=== PATIENT | male | born 1960 | race Caucasian/White ===

== ENCOUNTER 2023-06-21 17:32 | Observation (INO) | payer OTHER ==
--- NOTE | 2023-06-21 17:52 | ERPHSYRPT ---
- History of Present Illness Time Seen by Provider: 06/21/23 17:51 Source: patient, family Exam Limitations: clinical condition Patient Subjective Stated Complaint: vision loss, previous stroke Triage Nursing Assessment: patient's states that he had a stroke 1 month ago which left him paralyzed on the right side and unable to speak. he now is having loss of vision in the left eye Physician History: This is a 62-year-old white male patient who suffered a stroke 1 month ago while he was in [place]. Eventually he was transferred to [place] then to [place] and then [facility] for rehabilitation. Patient is aphasic and cannot move his right side. Patient was a chronic smoker of cigarettes. Carmella ent has a history of hypertension, prostate issues and hyperlipidemia. Approximately 30 minutes prior to arrival, the patient suddenly lost vision in his left eye. This is based on his spouse asking him if he is having any eye problems. He nods his head yes. He localizes his loss of vision in the left eye. It is persistent. He has no headache pain. Patient is taking atorvastatin, Plavix and aspirin. He also has antihypertensive medication that he is taking. Timing/Duration: today Severity: moderate Character of Deficits: vision problems (After [place] of vision) Deficits: cannot stand (Chronic), cannot walk (Chronic), off balance (Chronic) Baseline/Normal Cognition: alert oriented x 3 (But cannot speak) Current Cognition: alert oriented x 3 (But cannot speak) Associated Symptoms: vision changes (Loss of vision in left eye), No confusion, No loss of consciousness, No headache Allergies/Adverse Reactions: No Known Drug Allergies Allergy (Unverified 06/21/23 18:14) Home Medications: Amlodipine Besylate 10 mg PO QHS 06/21/23 [History] Aspirin 81 gm Chew [Baby Aspirin 81 mg Chew] 81 mg PO DAILY 06/21/23 [History] Atorvastatin Calcium 40 mg PO QHS 06/21/23 [History] Clopidogrel Bisulfate [Clopidogrel] 75 mg PO DAILY 06/21/23 [History] Losartan Potassium 50 mg [Cozaar 50 MG] 50 mg PO DAILY 06/21/23 [History] Sertraline HCl 50 mg [Zoloft 50 mg Tablet] 50 mg PO DAILY 06/21/23 [History] Tamsulosin HCl 0.4 mg [Flomax 0.4 MG] 0.4 mg PO DAILY 06/21/23 [History] Hx Tetanus, Diphtheria Vaccination/Date Given: No Hx Influenza Vaccination/Date Given: No Immunizations Up to Date: Yes Travel Risk - International Travel Have you traveled outside of the country in past 3 weeks: No - Emerging Infectious Disease Are you exhibiting symptoms associated with any current EIDs: No - Review of Systems Constitutional: No Symptoms Eyes: Vision Changes (Also vision left eye) Ears, Nose, & Throat: No Symptoms Respiratory: No Symptoms Cardiac: No Symptoms Abdominal/Gastrointestinal: No Symptoms Genitourinary Symptoms: No Symptoms Musculoskeletal: No Symptoms Skin: No Symptoms Neurological: Other (Loss of vision left eye) Endocrine: No Symptoms Hematologic/Lymphatic: No Symptoms Immunological/Allergic: No Symptoms All Other Systems: Reviewed and Negative - Past Medical History Pertinent Past Medical History: Yes Neurological History: Stroke - Past Surgical History Musculoskeletal: Orthopedic Surgery Other Surgical History: back surgery - Social History Smoking Status: Former smoker Drug Use: none - Nursing Vital Signs Nursing Vital Signs: Initial Vital Signs Temperature 97 F 06/21/23 17:38 Pulse Rate 80 06/21/23 17:38 Respiratory Rate 16 06/21/23 17:38 Blood Pressure 138/74 06/21/23 17:38 O2 Sat by Pulse Oximetry 94 L 06/21/23 17:38 Pain Scale Pain Intensity 0 - [place] Coma Scale Best Eye Response (Elverta): (4) open spontaneously Best Verbal Response (Annie): (5) oriented Best Motor Response ([place]ver[place]): (6) obeys commands [place] Total: 15 - Physical Exam General Appearance: no apparent distress, alert, anxiety Eye Exam: bilateral eye: normal inspection Ears, Nose, Throat Exam: normal ENT inspection, moist mucous membranes Neck Exam: normal inspection, non-tender, supple, full range of motion Respiratory: normal breath sounds, lungs clear, airway intact, No chest tenderness, No respiratory distress Cardiovascular: regular rate/rhythm, normal heart sounds, normal peripheral pulses Gastrointestinal: soft, normal bowel sounds, No tenderness Rectal Exam: not done Back Exam: normal inspection, No CVA tenderness, No vertebral tenderness Extremity Exam: paralysis (Patient cannot move his right sidechronic since his stroke 1 month ago) training administrator Exam: normal hearing Motor/Sensory: weak motor strength RUE (Cannot move right upper extremity), weak motor strength RLE (Cannot move right lower extremity) Skin Exam: normal color, warm, dry SpO2 Interpretation: borderline oxygenation SpO2: 94 O2 Delivery: Room Air - Course Nursing assessment & vital signs reviewed: Yes EKG Interpreted by Me: RATE (76), Sinus Rhythm, NORMAL AXIS, NORMAL INTERVALS, NORMAL QRS, NORMAL ST-T, Other (No acute ischemic changes on today's twelve-lead EKG.) Ordered Tests: Active Orders 24 hr Category Date Time Status Rubber Splicer STAT Care 06/21/23 17:52 Active IV Insertion STAT Care 06/21/23 17:52 Active IV Insertion-2nd Peripheral STAT Care 06/21/23 17:52 Active NPO (ED) STAT Care 06/21/23 17:52 Active Pulse Oximetry (ED) STAT Care 06/21/23 17:[address] ANGIOGRAPHY NECK [CT] Stat Exams 06/21/23 17:54 Completed CTA HEAD W AND/OR WO CONTRAST [CT] Stat Exams 06/21/23 17:53 Completed HEAD WITHOUT CONTRAST [CT] Stat Exams 06/21/23 18:00 Completed CBC W DIFF Stat Lab 06/21/23 18:00 Completed CMP Stat Lab 06/21/23 18:00 Completed CULTURE,URINE Stat Lab 06/21/23 21:15 Received PROTIME WITH INR Stat Lab 06/21/23 18:00 Completed UA W/RFX UR CULTURE Stat Lab 06/21/23 21:15 Completed Lab/Rad Data: Laboratory Result Diagrams 06/21/23 18:00 06/21/23 18:00 Laboratory Results 06/21/23 06/21/23 06/21/23 Range/Units 21:15 18:00 18:00 WBC (4.0-10.5) x10^3/uL RBC (4.1-5.6) x10^6/uL Hgb (12.5-18.0) g/dL Hct (42-50) % MCV (78-100) fL MCH (26-32) pg MCHC (32-36) g/dL RDW (11.5-14.0) % Plt Count (150-450) x10^3/uL MPV (7.5-11.0) fL Gran % (36.0-66.0) % Immature Gran % (Auto) (0.00-0.4) % Nucleat RBC Rel Count (0.00-0.1) % Eos # (Auto) (0-0.5) x10^3/uL Immature Gran # (Auto) (0.00-0.03) x10^3u/L Absolute Lymphs (auto) (1.0-4.6) x10^3/uL Absolute Monos (auto) (0.0-1.3) x10^3/uL Absolute Nucleated RBC (0.00-0.01) x10^3u/L Lymphocytes % (24.0-44.0) % Monocytes % (0.0-12.0) % Eosinophils % (0.00-5.0) % Basophils % (0.0-0.4) % Absolute Granulocytes (1.4-6.9) x10^3/uL Basophils # (0-0.4) x10^3/uL PT 9.9 (9.4-12.5) SECONDS INR 0.90 (0.8-3.0) Sodium 136 (135-145) mmol/L Potassium 3.9 (3.5-5.1) mmol/L Chloride 101 (98-107) mmol/L Carbon Dioxide 30 (22-30) mmol/L Anion Gap 9.0 (5-15) MEQ/L BUN 26 H (9-20) mg/dL Creatinine 0.89 (0.66-1.25) mg/dL Estimated GFR 98.1 ML/MIN Glucose 106 (74-106) mg/dL Calcium 9.3 (8.4-10.2) mg/dL Total Bilirubin 0.30 (0.2-1.3) mg/dL AST 33 (17-59) U/L ALT 38 (0-50) U/L Alkaline Phosphatase 93 (38-126) U/L Serum Total Protein 6.7 (6.3-8.2) g/dL Albumin 4.0 (3.5-5.0) g/dL Urine Color Yellow (Yellow) Urine Appearance Clear (Clear) Urine pH 6.5 (4.6-8.0) Ur Specific [place] >=1.030 A (1.005-1.030) Urine Protein Negative (Negative) Urine Glucose (UA) Negative (Negative) mg/dL Urine Ketones Negative (Negative) Urine Blood Negative (Negative) Urine Nitrite Negative (Negative) Urine Bilirubin Negative (Negative) Urine Urobilinogen 1.0 A (0.2) mg/dL Ur Leukocyte Esterase Small A (Negative) U Hyaline Cast (Auto) NONE SEEN (0-2) /LPF Urine Microscopic RBC 0-2 (0-5) /HPF Urine Microscopic WBC 21-50 A (0-5) /HPF Ur Epithelial Cells None Seen (None Seen) /HPF Urine Bacteria None Seen (None Seen) /HPF Urine Culture Reflexed YES (NO) 06/21/23 Range/Units 18:00 WBC 8.2 (4.0-10.5) x10^3/uL RBC 4.11 (4.1-5.6) x10^6/uL Hgb 13.3 (12.5-18.0) g/dL Hct 39.4 L (42-50) % MCV 95.9 (78-100) fL MCH 32.4 H (26-32) pg MCHC 33.8 (32-36) g/dL RDW 12.4 (11.5-14.0) % Plt Count 272 (150-450) x10^3/uL MPV 8.6 (7.5-11.0) fL Gran % 59.3 (36.0-66.0) % Immature Gran % (Auto) 0.1 (0.00-0.4) % Nucleat RBC Rel Count 0.0 (0.00-0.1) % Eos # (Auto) 0.69 H (0-0.5) x10^3/uL Immature Gran # (Auto) 0.01 (0.00-0.03) x10^3u/L Absolute Lymphs (auto) 1.90 (1.0-4.6) x10^3/uL Absolute Monos (auto) 0.71 (0.0-1.3) x10^3/uL Absolute Nucleated RBC 0.00 (0.00-0.01) x10^3u/L Lymphocytes % 23.1 L (24.0-44.0) % Monocytes % 8.6 (0.0-12.0) % Eosinophils % 8.4 H (0.00-5.0) % Basophils % 0.5 (0.0-0.4) % Absolute Granulocytes 4.87 (1.4-6.9) x10^3/uL Basophils # 0.04 (0-0.4) x10^3/uL PT (9.4-12.5) SECONDS INR (0.8-3.0) Sodium (135-145) mmol/L Potassium (3.5-5.1) mmol/L Chloride (98-107) mmol/L Carbon Dioxide (22-30) mmol/L Anion Gap (5-15) MEQ/L BUN (9-20) mg/dL Creatinine (0.66-1.25) mg/dL Estimated GFR ML/MIN Glucose (74-106) mg/dL Calcium (8.4-10.2) mg/dL Total Bilirubin (0.2-1.3) mg/dL AST (17-59) U/L ALT (0-50) U/L Alkaline Phosphatase (38-126) U/L Serum Total Protein (6.3-8.2) g/dL Albumin (3.5-5.0) g/dL Urine Color (Yellow) Urine Appearance (Clear) Urine pH (4.6-8.0) Ur Specific [place] (1.005-1.030) Urine Protein (Negative) Urine Glucose (UA) (Negative) mg/dL Urine Ketones (Negative) Urine Blood (Negative) Urine Nitrite (Negative) Urine Bilirubin (Negative) Urine Urobilinogen (0.2) mg/dL Ur Leukocyte Esterase (Negative) U Hyaline Cast (Auto) (0-2) /LPF Urine Microscopic RBC (0-5) /HPF Urine Microscopic WBC (0-5) /HPF Ur Epithelial Cells (None Seen) /HPF Urine Bacteria (None Seen) /HPF Urine Culture Reflexed (NO) - Progress Progress: unchanged Progress Note: 06/21/23 19:06 My medical decision making and the assignment of high complexity of this patient's medical issue today is based on review of the patient's past medical history, review of the patient's medication list, review the patient drug allergy list, history of present illness and physical findings on examination. The workup in this patient includes placement of an intravenous line, CT of the head without contrast, CTA of the head with contrast, CT angiography of the neck. Will also do a twelve-lead EKG, urinalysis, CBC, CMP, PT/INR. Differential diagnosis includes worsening CVA, new CVA, carotid artery disease, arrhythmia 06/21/23 20:12 I interpreted the laboratory data results. The laboratory data results thus far do not show an acute or emergent medical issue. The urinalysis is pending. CT of the head without contrast was interpreted by the radiologist and shows a left parietal hypodense area seen in the cortical and subcortical region and left middle cerebral artery territory. Likely acute infarct. There is a well- defined dense lesion seen at the right carotid cistern showing enhancement on arterial phase study. Highly suggestive for a large MCA aneurysm measuring 14 mm x 12 mm. There are microvascular ischemic and senile changes. CTA of the head was interpreted by the radiologist and I reviewed the impression. The the study shows the left common carotid, ICA and visualized extracranial segments seen occluded with filling defect within signifying thrombus. 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 The remainder of the study is normal. There is a normal [place] 06/21/23 20:23 CT angiography of the neck was interpreted by the radiologist. The impression states there is left common carotid and internal carotid artery that are seen that are occluded with an isodense thrombus along their course. The right carotid artery has a hemodynamic insignificant atheromatous plaque and calcifications. The proximal right MCA highly concerning for aneurysm 06/21/23 21:[address] Lau, the [facility] neurologist on-call. He reviewed the actual films as I was reading the reports of the radiologist finding of all the studies that were clouded regarding this patient. He states that he feels that these areas of abnormalities appear chronic. He does not feel the patient requires thrombectomy. He stated that the only patients that they are taking at this time are level 1 stroke and trauma patients. He does not believe this is an acute stroke. We will contact [facility] [place] and have them evaluate these studies for possible transfer to their facility. 06/21/23 21:30 We contacted [facility] and I spoke with the nurse practitioner Jaquelin. It sounded as if she was in neurology and I had already spoken with the neurologist and I wanted to speak with the neurosurgeon. We have clouded the films to the cloud. We are awaiting a callback from Dr. Forte. He is a neurosurgeon. 06/21/23 22:03 Dr. Forte, the neurosurgeon out of [facility] [place] reviewed the films that were clouded regarding this patient. He states that no neurosurgical intervention is necessary. I spoke with hospitalist out of [facility] in [place], [place]. I reviewed the patient history, physical findings, results of the radiographic studies as well as reviewing the results of the CT scans of the prior hospitalization which I also reviewed. He accepts the patient at 2200 and is planning on placing him in the PCU inpatient setting but a bed will likely not be available till about noon on 06/22/2023. We will contact the telehospitalist bonding machine operator to see if we can place him in observation tonight. 06/21/23 22:[address] Heber Mcclure. I reviewed the patient history, presenting complaint, workup results and current condition of this patient. He accepts the patient to be placed in observation. We will put him in an ICU bed so that he is monitored and neurochecks are being performed. Discussed with Dr.: Lalo Counseled pt/family regarding: lab results, diagnosis, rad results Medical Desision Making - Independent Historian Additional History obtained from: Spouse - Discussion of managment Care discussed with:: specialist (Neurologist at [facility] Dr. Lau, neurosurgeon Dr. Marcum at [facility] [place]) Reviewed:: Test results, Need for additional workup Agreed on:: place in obs Will see patient: in hospital - Diagnostic Testing Diagnostic test were ordered, analyzed, and reviewed by me: Yes Radiological Interpretation: Reviewed by me, Teleradiologist Report - Risk of complications The pt has a high risk of morbidity or mortality based on: Decision regarding hospitilization or escalation of hosp level of care - Departure Departure Disposition: Observation Clinical Impression: Vision loss, left eye Condition: Stable Critical Care Time: No Referrals: DOCTOR,NO FAMILY [Primary Care Provider] - Follow up/PCP as directed
[2023-06-21 18:05] LABS: Absolute Neutrophil Ct (ANC) 4.87 x10^3/uL (1.4-6.9); BASOPHIL % 0.5 % (0.0-0.4); Basophil (Absolute #) 0.04 x10^3/uL (0-0.4); Eosinophil % 8.4 % (0.00-5.0); Eosinophil (Absolute #) 0.69 x10^3/uL (0-0.5); Hematocrit 39.4 % (42-50); Hemoglobin 13.3 g/dL (12.5-18.0); IMMATURE GRAN # 0.01 x10^3u/L (0.00-0.03); IMMATURE GRAN % 0.1 % (0.00-0.4); Lymphocytes % 23.1 % (24.0-44.0); Mean Cell Volume 95.9 fL (78-100); Mean Corpuscular Hemoglobin 32.4 pg (26-32); Mean Corpuscular Hgb Concent. 33.8 g/dL (32-36); Mean Platelet Volume 8.6 fL (7.5-11.0); Monocyte (Absolute #) 0.71 x10^3/uL (0.0-1.3); Monocytes % 8.6 % (0.0-12.0); Neutrophil % 59.3 % (36.0-66.0); Platelet Count 272 x10^3/uL (150-450); Red Blood Count 4.11 x10^6/uL (4.1-5.6); Red Cell Distribution Width 12.4 % (11.5-14.0); White Blood Count 8.2 x10^3/uL (4.0-10.5)
[2023-06-21 18:22] LABS: INR 0.9 (0.8-3.0); PROTIME 9.9 SECONDS (9.4-12.5)
[2023-06-21 18:23] LABS: BILIRUBIN,TOTAL 0.3 mg/dL (0.2-1.3); Calcium 9.3 mg/dL (8.4-10.2); Creatinine 1 0.89 mg/dL (0.66-1.25); EST GLOMERULAR FILTRATION RATE 98.1 ML/MIN; Potassium 3.9 mmol/L (3.5-5.1); Total Protein 6.7 g/dL (6.3-8.2)
--- NOTE | 2023-06-21 20:03 | XRAY ---
CLINICAL HISTORY: Left vision loss COMPARISON: 06/21/2023 CT head. TECHNIQUE: CT scan of the cerebral vessels without and with intravenous contrast administration (CT angiography) 90 mL contrast was given through IV. Images were acquired in axial cuts with coronal and sagittal reformation. One of the following dose-reduction techniques was utilized for this exam.Automated exposure control, adjustment of the mA and/or kV according to patient size, and use of iterative reconstruction. One of these 3D techniques was utilized: Maximum Intensity Pixel (MIP), 3D Reconstructed Images, Volume Rendered Images, Surface Shaded Rendering. FINDINGS: The left common carotid, internal carotid artery cavernous, and visualized extracranial segments are seen occluded with filling defect signifying thromba us. The right internal carotid artery show normal course and caliber and is well enhanced with contrast. No evidence of occlusion or stenosis. There is evidence of a large enhancing area seen originating from the right MCA likely signifying a large aneurysm measuring approximately 15 x 10 x 14mm. There are normal bifurcations on both sides. There is normal appearance of the rest of the [place]. The vertebral arteries are patent and enhanced with contrast. The basilar and posterior cerebral arteries are patent and show good contrast enhancement with no stenosis. The right posterior cerebral artery is a communication of the posterior communicating artery (Persistent PCOM) as a variant. Patent scanned superficial dural venous sinuses as well as deep cerebral veins IMPRESSION: 1. The left common carotid, internal carotid artery cavernous, and visualized extracranial segments are seen occluded with filling defect within signifying thrombus. 2. A large approximately 15 x 10 x 14mm MCA aneurysm is seen arising from M1 segment. 3. The rest of the study is normal. [facility] [place] [place] was called at [phone] at 7:52 PM EST and results were verbally communicated to Dr. Glez. Electronically Signed by: Shan Bhatt MD. (06/21/2023 19:58:39 EDT)
--- NOTE | 2023-06-21 20:04 | XRAY ---
CLINICAL HISTORY: cant see out of left eye COMPARISON: CTA 06/21/2023 TECHNIQUE: An axial non-contrast CT scan of the brain was performed from the skull base to the high parietal region. One of the following dose reduction techniques was utilized for this exam.Automated exposure control, adjustment of the mA and/or kV according to patient size, and use of iterative reconstruction. FINDINGS: A left parietal hypodense area is seen cortical and subcortical in the left middle cerebral artery territory. A well defined dense globular lesion is seen at the right carotid cistern with partial calcification measuring 14 x 12mm highly concerning for an MCA aneurysm. Two right upper parafalcine calcified lesions are also seen measuring 1.4x1 cm and 1 cm. No evident contrast enhancement is seen the arterial phase in the CTA study. Exaggerated bilateral cerebral white matter hypodensity is noted together with a few tiny ill-defined hypodense areas noted in the frontoparietal subcortical white matter bilaterally, suggestive of microvascular ischemic changes. The ventricular system, cortical sulci, and basal cisterns are prominent and consistent with senile changes. Gomez-white matter differentiation is maintained. No midline shifts or deformity. No intracerebral or extra axial hematoma. Normal CT appearance of the posterior fossa structures namely the cerebellar hemispheres, brainstem, and cerebellar peduncles. The IACs are unremarkable. The cerebello-pontine angles are clear. The osseous structures in the skull base are unremarkable. No definite calvarium fractures. The scanned paranasal sinuses are clear. IMPRESSION: 1. A left parietal hypodense area is seen cortical and subcortical in the left middle cerebral artery territory. Likely acute infarct. 2. A well defined dense lesion is seen at the right carotid cistern showing enhancement on arterial phase study highly concerning for a large MCA aneurysm measuring approximately 14 x 12mm.. 3. Two right upper parafalcine calcified lesions are seen measuring 1.4x1 cm and 1 cm. No evident contrast enhancement is seen the arterial phase in the CTA study. 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 4. Findings suggestive of microvascular ischemic changes and senile changes. [facility] [place] [facility] ER was called at [phone] at 7:52 PM EST and results were verbally communicated to Dr. Glez. Electronically Signed by: Shan Bhatt MD. (06/21/2023 20:00:32 EDT)
--- NOTE | 2023-06-21 20:07 | XRAY ---
CLINICAL HISTORY: Left eye vision loss COMPARISON: 06/21/2023 CT head and CTA head TECHNIQUE: Axial sections of CT neck angiogram were obtained with the administration of intravenous contrast. Reformatted coronal and sagittal cases were obtained along with 3D reconstructions. One of the following dose reduction techniques was utilized for this exam.Automated exposure control, adjustment of the mA and/or kV according to patient size, and use of iterative reconstruction. One of these 3D techniques was utilized: Maximum Intensity Pixel (MIP), 3D Reconstructed Images, Volume Rendered Images, Surface Shaded Rendering. FINDINGS: The left common carotid and internal carotid arteries are seen occluded with an isodense thrombus within along their course. A dense calcified atheromatous plaque is seen at most of the axial diameter nearly obliteratingthe distal end of the left common carotid artery and carotid june. An enhancing globular lesion seems to be arising from the proximal part of MCA, highly concerning for aneurysm. Opacification of the left external carotid artery by collaterals. No hemodynamically significant stenosis of the right common carotid, right carotid bifurcation, or right internal carotid arteries is seen.Hemodynamically insignificant atheromatous plaques and minimal calcificaitons are seen in the right carotid arteries. The extracranial portions of the vertebral basilar system are preserved without stenosis. IMPRESSION: 1. The left common carotid and internal carotid arteries are seen occluded with an isodense thrombus within along their course. A dense calcified atheromatous plaque is seen at most of the axial diameter nearly obliterating the distal end of the left common carotid artery and carotid june. 2. Hemodynamically insignificant atheromatous plaques and minimal calcificaitons are seen in the right carotid arteries. 3. An enhgancing globular lesion seems to be arising from the rpoximal MCA, highly concerning for an MCA aneurysm , CT/MRI angiography head can be helful for confirmation. [facility] ER was called at [phone] at 7:52 PM EST and results were verbally communicated to Dr. Glez. Electronically Signed by: Shan Bhatt MD. (06/21/2023 20:03:42 EDT)
[2023-06-21 21:24] LABS: ADD URINE CULTURE? YES (NO); Appearance Clear (Clear); Bacteria None Seen /HPF (None Seen); Bilirubin Negative (Negative); Blood Negative (Negative); Epithelial Cells None Seen /HPF (None Seen); Glucose, Urine Negative (Negative); Hyaline Casts NONE SEEN /LPF (0-2); Ketones Negative (Negative); Leukocyte Esterase Small (Negative); Nitrite Negative (Negative); Ph 6.5 (4.6-8.0); Protein,Urine Dip Negative (Negative); RBC 0-2 /HPF (0-5); Specific Gravity >=1.030 (1.005-1.030); WBC 21-50 /HPF (0-5)
[2023-06-21] MEDS: ROCEPHIN 1 GM / 100 ML NaCl 1 GM/100 ML IVPB IV SCH (22:52)
--- NOTE | 2023-06-21 23:24 | PCM.HP ---
History of Present Illness - Chief Complaint Chief Complaint: Stroke History of Present Illness: is a 62 year old male who suffered a stroke about 1 month ago while in [place], treated medically and now presents with sudden vision loss in the left eye, right sided weakness with CT of head without contrast showed a likely acute infart in left parietal area, and CTA of the head showed shows the left common carotid, ICA and visualized extracranial segments seen occluded with filling def ect within signifying thrombus. 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 The impression states there is left common carotid and internal carotid artery that are seen that are occluded with an isodense thrombus along their course. The right carotid artery has a hemodynamic insignificant atheromatous plaque and calcifications. The proximal right MCA highly concerning for aneurysm. The ED doctor spoke with Dr. Lau from [facility] (neurologist dairy nutrition consultant) - He reviewed the actual films as I was reading the reports of the radiologist finding of all the studies that were clouded regarding this patient. He states that he feels that these areas of abnormalities appear chronic. He does not feel the patient requires thrombectomy. He stated that the only patients that they are taking at this time are level 1 stroke and trauma patients. He does not believe this is an acute stroke. Dr. Forte, the neurosurgeon out of [facility] reviewed the films that were clouded regarding this patient. He states that no neurosurgical intervention is necessary. The ED doctor then spoke with hospitalist out of [facility] in [place], [place]. I reviewed the patient history, physical findings, results of the radiographic studies as well as reviewing the results of the CT scans of the prior hospitalization which I also reviewed. He accepts the patient at 2200 and is planning on placing him in the PCU inpatient setting but a bed will likely not be available till about noon on 06/22/2023. So was admitted to [facility] for observation overnight. - Review of Systems Constitutional: No Fever, No Chills Eyes: No Symptoms Ears, Nose, & Throat: No Symptoms Respiratory: No Cough, No Short Of Breath Cardiac: No Chest Pain, No Edema, No Syncope Abdominal/Gastrointestinal: No Abdominal Pain, No Nausea, No Vomiting, No Diarrhea Genitourinary Symptoms: No Dysuria Musculoskeletal: No Back Pain, No Neck Pain Skin: No Rash Neurological: Focal Weakness, Sensory Changes, No Dizziness Psychological: No Symptoms Endocrine: No Symptoms Hematologic/Lymphatic: No Symptoms Immunological/Allergic: No Symptoms Medications & Allergies Home Medications: Home Medication List Amlodipine Besylate 10 mg PO QHS 06/21/23 [History Confirmed 06/21/23] Aspirin 81 gm Chew [Baby Aspirin 81 mg Chew] 81 mg PO DAILY 06/21/23 [History Confirmed 06/21/23] Atorvastatin Calcium 40 mg PO QHS 06/21/23 [History Confirmed 06/21/23] Baclofen 10 mg [Lioresal 10 mg] 10 mg PO Q8H PRN PRN 06/21/23 [History Confirmed 06/21/23] Clopidogrel Bisulfate [Clopidogrel] 75 mg PO DAILY 06/21/23 [History Confirmed 06/21/23] Fluticasone Propionate [Armonair Digihaler] 1 spray IH Q12H PRN PRN 06/21/23 [History Confirmed 06/21/23] Losartan Potassium 50 mg [Cozaar 50 MG] 50 mg PO DAILY 06/21/23 [History Confirmed 06/21/23] Sertraline HCl 50 mg [Zoloft 50 mg Tablet] 50 mg PO DAILY 06/21/23 [History Confirmed 06/21/23] Sodium Chloride 1,000 mg PO BID 06/21/23 [History Confirmed 06/21/23] Tamsulosin HCl 0.4 mg [Flomax 0.4 MG] 0.4 mg PO DAILY 06/21/23 [History Confirmed 06/21/23] Allergies/Adverse Reactions: Allergies Allergy/AdvReac Type Severity Reaction Status Date / Time tetracycline Allergy Mild Verified 06/21/23 22:51 - Past Medical History Past Medical History: Yes Neurological History: Stroke - Past Surgical History Musculskeletal Surgical Hx: Orthopedic Surgery Other Surgical History: back surgery - Social History Smoking Status: Former smoker Alcohol: None Drug Use: none - Physical Exam Vital Signs: Vital Signs - 24 hr Temp Pulse Resp BP BP Pulse Ox 06/21/23 23:00 63 17 147/67 96 06/21/23 22:30 62 22 134/68 95 06/21/23 22:18 94 L 06/21/23 22:00 62 15 143/75 95 06/21/23 21:30 62 19 132/71 06/21/23 21:01 65 18 143/67 97 06/21/23 20:30 66 11 L 158/69 95 06/21/23 20:00 69 8 L 145/76 95 06/21/23 19:31 68 11 L 144/71 97 06/21/23 19:12 67 14 150/68 97 06/21/23 18:03 95 06/21/23 17:44 138/74 06/21/23 17:38 97 F 80 16 138/74 94 L General Appearance: no apparent distress, alert Neurologic Exam: alert, oriented x 3, cooperative, normal mood/affect, nml cerebellar function, nml station & gait, sensation nml, No motor deficits Eye Exam: PERRL/EOMI, eyes nml inspection Ears, Nose, Throat Exam: normal ENT inspection, TMs normal, pharynx normal, moist mucous membranes Neck Exam: normal inspection, non-tender, supple, full range of motion Respiratory Exam: normal breath sounds, lungs clear, No respiratory distress Cardiovascular Exam: regular rate/rhythm, normal heart sounds, normal peripheral pulses Gastrointestinal/Abdomen Exam: soft, normal bowel sounds, No tenderness, No mass Back Exam: normal inspection, normal range of motion, No CVA tenderness, No vertebral tenderness Extremity Exam: normal inspection, normal range of motion, pelvis stable Skin Exam: normal color, warm, dry, No rash Lymphatic Exam: No adenopathy Results - Labs Lab/Micro Results: Lab Results-Last 24 Hours 06/21/23 06/21/23 06/21/23 Range/Units 18:00 18:00 18:00 WBC 8.2 (4.0-10.5) x10^3/uL RBC 4.11 (4.1-5.6) x10^6/uL Hgb 13.3 (12.5-18.0) g/dL Hct 39.4 L (42-50) % MCV 95.9 (78-100) fL MCH 32.4 H (26-32) pg MCHC 33.8 (32-36) g/dL RDW 12.4 (11.5-14.0) % Plt Count 272 (150-450) x10^3/uL MPV 8.6 (7.5-11.0) fL Gran % 59.3 (36.0-66.0) % Immature Gran % (Auto) 0.1 (0.00-0.4) % Nucleat RBC Rel Count 0.0 (0.00-0.1) % Eos # (Auto) 0.69 H (0-0.5) x10^3/uL Immature Gran # (Auto) 0.01 (0.00-0.03) x10^3u/L Absolute Lymphs (auto) 1.90 (1.0-4.6) x10^3/uL Absolute Monos (auto) 0.71 (0.0-1.3) x10^3/uL Absolute Nucleated RBC 0.00 (0.00-0.01) x10^3u/L Lymphocytes % 23.1 L (24.0-44.0) % Monocytes % 8.6 (0.0-12.0) % Eosinophils % 8.4 H (0.00-5.0) % Basophils % 0.5 (0.0-0.4) % Absolute Granulocytes 4.87 (1.4-6.9) x10^3/uL Basophils # 0.04 (0-0.4) x10^3/uL PT 9.9 (9.4-12.5) SECONDS INR 0.90 (0.8-3.0) Sodium 136 (135-145) mmol/L Potassium 3.9 (3.5-5.1) mmol/L Chloride 101 (98-107) mmol/L Carbon Dioxide 30 (22-30) mmol/L Anion Gap 9.0 (5-15) MEQ/L BUN 26 H (9-20) mg/dL Creatinine 0.89 (0.66-1.25) mg/dL Estimated GFR 98.1 ML/MIN Glucose 106 (74-106) mg/dL Calcium 9.3 (8.4-10.2) mg/dL Total Bilirubin 0.30 (0.2-1.3) mg/dL AST 33 (17-59) U/L ALT 38 (0-50) U/L Alkaline Phosphatase 93 (38-126) U/L Serum Total Protein 6.7 (6.3-8.2) g/dL Albumin 4.0 (3.5-5.0) g/dL Urine Color (Yellow) Urine Appearance (Clear) Urine pH (4.6-8.0) Ur Specific [place] (1.005-1.030) Urine Protein (Negative) Urine Glucose (UA) (Negative) mg/dL Urine Ketones (Negative) Urine Blood (Negative) Urine Nitrite (Negative) Urine Bilirubin (Negative) Urine Urobilinogen (0.2) mg/dL Ur Leukocyte Esterase (Negative) U Hyaline Cast (Auto) (0-2) /LPF Urine Microscopic RBC (0-5) /HPF Urine Microscopic WBC (0-5) /HPF Ur Epithelial Cells (None Seen) /HPF Urine Bacteria (None Seen) /HPF Urine Culture Reflexed (NO) 06/21/23 Range/Units 21:15 WBC (4.0-10.5) x10^3/uL RBC (4.1-5.6) x10^6/uL Hgb (12.5-18.0) g/dL Hct (42-50) % MCV (78-100) fL MCH (26-32) pg MCHC (32-36) g/dL RDW (11.5-14.0) % Plt Count (150-450) x10^3/uL MPV (7.5-11.0) fL Gran % (36.0-66.0) % Immature Gran % (Auto) (0.00-0.4) % Nucleat RBC Rel Count (0.00-0.1) % Eos # (Auto) (0-0.5) x10^3/uL Immature Gran # (Auto) (0.00-0.03) x10^3u/L Absolute Lymphs (auto) (1.0-4.6) x10^3/uL Absolute Monos (auto) (0.0-1.3) x10^3/uL Absolute Nucleated RBC (0.00-0.01) x10^3u/L Lymphocytes % (24.0-44.0) % Monocytes % (0.0-12.0) % Eosinophils % (0.00-5.0) % Basophils % (0.0-0.4) % Absolute Granulocytes (1.4-6.9) x10^3/uL Basophils # (0-0.4) x10^3/uL PT (9.4-12.5) SECONDS INR (0.8-3.0) Sodium (135-145) mmol/L Potassium (3.5-5.1) mmol/L Chloride (98-107) mmol/L Carbon Dioxide (22-30) mmol/L Anion Gap (5-15) MEQ/L BUN (9-20) mg/dL Creatinine (0.66-1.25) mg/dL Estimated GFR ML/MIN Glucose (74-106) mg/dL Calcium (8.4-10.2) mg/dL Total Bilirubin (0.2-1.3) mg/dL AST (17-59) U/L ALT (0-50) U/L Alkaline Phosphatase (38-126) U/L Serum Total Protein (6.3-8.2) g/dL Albumin (3.5-5.0) g/dL Urine Color Yellow (Yellow) Urine Appearance Clear (Clear) Urine pH 6.5 (4.6-8.0) Ur Specific [place] >=1.030 A (1.005-1.030) Urine Protein Negative (Negative) Urine Glucose (UA) Negative (Negative) mg/dL Urine Ketones Negative (Negative) Urine Blood Negative (Negative) Urine Nitrite Negative (Negative) Urine Bilirubin Negative (Negative) Urine Urobilinogen 1.0 A (0.2) mg/dL Ur Leukocyte Esterase Small A (Negative) U Hyaline Cast (Auto) NONE SEEN (0-2) /LPF Urine Microscopic RBC 0-2 (0-5) /HPF Urine Microscopic WBC 21-50 A (0-5) /HPF Ur Epithelial Cells None Seen (None Seen) /HPF Urine Bacteria None Seen (None Seen) /HPF Urine Culture Reflexed YES (NO) - Radiology Impressions Radiology Exams & Impressions: Radiology Procedures Category Date Time Status CT ANGIOGRAPHY NECK [CT] Stat Exams 06/21/23 17:54 Completed CTA HEAD W AND/OR WO CONTRAST [CT] Stat Exams 06/21/23 17:53 Completed HEAD WITHOUT CONTRAST [CT] Stat Exams 06/21/23 18:00 Completed Assessment/Plan (1) Stroke Current Visit: Yes Status: Acute Assessment & Plan: 1. Continue medical therapy with ASA, Plavix, Statin 2. Plan to transfer to [facility] on 06/21 (ED Doctor spoke with hospitalist out of [facility] in [place]. He accepted the patient at 2200 and is planning on placing him in the PCU inpatient setting but a bed will likely not be available till about noon on 06/22/2023. Code(s): I63.9 - CEREBRAL INFARCTION, UNSPECIFIED Telemedicine Encounter - Telemedicine Encounter Telemedicine Encounter: The entirety of this encounter was performed via Telemedicine"
[2023-06-21] MEDS: LIORESAL 10 MG PO PRN (23:26)
[2023-06-21] MEDS ORDERED: Zofran 4 MG/2 ML VIAL IV PRN (23:43)
[2023-06-22] MEDS: Sodium Chloride 0.9% 1000 ML 1,000 ML IV SCH (00:46)
[2023-06-22 05:06] LABS: Absolute Neutrophil Ct (ANC) 3.58 x10^3/uL (1.4-6.9); BASOPHIL % 0.8 % (0.0-0.4); Basophil (Absolute #) 0.05 x10^3/uL (0-0.4); Eosinophil % 10.7 % (0.00-5.0); Hematocrit 40.3 % (42-50); Hemoglobin 13.4 g/dL (12.5-18.0); IMMATURE GRAN # 0.01 x10^3u/L (0.00-0.03); IMMATURE GRAN % 0.2 % (0.00-0.4); Lymphocyte (Absolute #) 1.61 x10^3/uL (1.0-4.6); Lymphocytes % 24.6 % (24.0-44.0); Mean Cell Volume 96.4 fL (78-100); Mean Corpuscular Hemoglobin 32.1 pg (26-32); Mean Corpuscular Hgb Concent. 33.3 g/dL (32-36); Mean Platelet Volume 8.6 fL (7.5-11.0); Monocytes % 9.2 % (0.0-12.0); Neutrophil % 54.5 % (36.0-66.0); Platelet Count 270 x10^3/uL (150-450); Red Blood Count 4.18 x10^6/uL (4.1-5.6); Red Cell Distribution Width 12.4 % (11.5-14.0); White Blood Count 6.6 x10^3/uL (4.0-10.5)
[2023-06-22 05:29] LABS: ALBUMIN 3.9 g/dL (3.5-5.0); BILIRUBIN,TOTAL 0.5 mg/dL (0.2-1.3); Calcium 9.3 mg/dL (8.4-10.2); Creatinine 1 0.64 mg/dL (0.66-1.25); EST GLOMERULAR FILTRATION RATE 108.4 ML/MIN; Total Protein 6.4 g/dL (6.3-8.2)
[2023-06-22] MEDS: PLAVIX Tablet PO SCH (09:49)
[2023-06-22] MEDS: Cozaar 50 MG PO SCH (09:49)
[2023-06-22] MEDS: SODIUM CHLORIDE PO SCH (09:49)
[2023-06-22] MEDS: LIORESAL 10 MG PO PRN (09:49)
[2023-06-22] MEDS: ZOLOFT 50 MG TABLET PO SCH (09:49)
[2023-06-22] MEDS: ECOTRIN 81 MG PO SCH (09:49)
[2023-06-22] MEDS: Flomax 0.4 MG PO SCH (09:49)
[2023-06-22] MEDS ORDERED: BABY ASPIRIN 81 MG CHEW PO SCH (10:00)
--- NOTE | 2023-06-22 11:23 | PCM.NOTE ---
Date and Time: 06/22/23 1111 Subjective Assessment: is a 62 year old male who suffered a stroke about 1 month ago while in [place], treated medically and now presents with sudden vision loss in the left eye, right sided weakness with CT of head without contrast showed a likely acute infart in left parietal area, and CTA of the head showed shows the left common carotid, ICA and visualized extracranial segments seen occluded with filling defect within signifying thrombus. 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 The impression states there is left common carotid and internal carotid artery that are seen that are occluded with an isodense thrombus along their course. The right carotid artery has a hemodynamic insign ificant atheromatous plaque and calcifications. The proximal right MCA highly concerning for aneurysm. Of noted The ED doctor spoke with Dr. Lau from [facility] (neurologist sap ppm consultant) - He reviewed the actual films as I was reading the reports of the radiologist finding of all the studies that were clouded regarding this patient. He states that he feels that these areas of abnormalities appear chronic. He does not feel the patient requires thrombectomy. He stated that the only patients that they are taking at this time are level 1 stroke and trauma patients. He does not believe this is an acute stroke. Dr. Forte, the neurosurgeon out of [facility] reviewed the films that were clouded regarding this patient. He states that no neurosurgical intervention is necessary.The ED doctor then spoke with hospitalist out of [facility] in [place], [place]. I reviewed the patient history, physical findings, results of the radiographic studies as well as reviewing the results of the CT scans of the prior hospitalization which I also reviewed. He accepts the patient at 2200 and is planning on placing him in the PCU inpatient setting but a bed will likely not be available till about noon on 06/22/2023. Admitted to [facility] for observation overnight pending transfer. Patient's family did request neuro consult this morning to determine if transfer is necessary. Neurology has seen the patient and discussed options for treatment if stroke is acute vs CRAO vs other ocular process with recommendations for transfer for neurosurgery evaluation of aneurysm due to size which is high risk for rupture. Family is agreeable to transfer. - Review of Systems All Other Systems: Unable due to condition (Global apashia ) Objective Exam General Appearance: no apparent distress Neurologic Exam: alert, motor deficits (right hemiplegia. Left arm/leg no drift), aphasia, other (Global apashia, Non-verbal) Skin Exam: pale Eye Exam: EOMI, other (decreased vision left eye) Ears, Nose, Throat Exam: normal ENT inspection Neck Exam: full range of motion Respiratory Exam: normal breath sounds, lungs clear Cardiovascular Exam: regular rate/rhythm, normal heart sounds Gastrointestinal/Abdomen Exam: soft, normal bowel sounds Extremity Exam: other (right hemiplegia) Back Exam: normal inspection Objective Data Vital Signs: Vital Signs - 24 hr Temp Pulse Resp BP BP Pulse Ox 06/22/23 10:00 66 16 145/73 97 06/22/23 08:00 64 19 163/81 96 06/22/23 06:38 97.6 F 59 L 20 145/73 98 06/22/23 06:21 57 L 17 145/73 98 06/22/23 06:00 58 L 17 151/75 96 06/22/23 04:00 56 L 20 162/81 96 06/22/23 02:00 58 L 9 L 133/68 96 06/22/23 01:36 57 L 8 L 132/68 95 06/22/23 00:00 60 18 148/71 96 06/21/23 23:54 62 96 06/21/23 23:49 63 15 148/71 95 06/21/23 23:30 60 20 144/77 97 06/21/23 23:00 61 15 147/67 95 06/21/23 22:30 62 22 134/68 95 06/21/23 22:18 94 L 06/21/23 22:00 62 15 143/75 95 06/21/23 21:30 62 19 132/71 95 06/21/23 21:01 65 18 143/67 97 06/21/23 20:30 66 11 L 158/69 95 06/21/23 20:00 69 8 L 145/76 95 06/21/23 19:31 68 11 L 144/71 97 06/21/23 19:12 67 14 150/68 97 06/21/23 18:03 95 06/21/23 17:44 138/74 06/21/23 17:38 97 F 80 16 138/74 94 L Pain Assessment - Last Documented Pain Intensity 0 Intake and Output: Intake & Output 06/19/23 06/20/23 06/21/23 06/22/23 11:59 11:59 11:59 11:59 Weight 69 kg Lab Results: Lab Results-Last 24 Hours 06/21/23 06/21/23 06/21/23 Range/Units 18:00 18:00 18:00 WBC 8.2 (4.0-10.5) x10^3/uL RBC 4.11 (4.1-5.6) x10^6/uL Hgb 13.3 (12.5-18.0) g/dL Hct 39.4 L (42-50) % MCV 95.9 (78-100) fL MCH 32.4 H (26-32) pg MCHC 33.8 (32-36) g/dL RDW 12.4 (11.5-14.0) % Plt Count 272 (150-450) x10^3/uL MPV 8.6 (7.5-11.0) fL Gran % 59.3 (36.0-66.0) % Immature Gran % (Auto) 0.1 (0.00-0.4) % Nucleat RBC Rel Count 0.0 (0.00-0.1) % Eos # (Auto) 0.69 H (0-0.5) x10^3/uL Immature Gran # (Auto) 0.01 (0.00-0.03) x10^3u/L Absolute Lymphs (auto) 1.90 (1.0-4.6) x10^3/uL Absolute Monos (auto) 0.71 (0.0-1.3) x10^3/uL Absolute Nucleated RBC 0.00 (0.00-0.01) x10^3u/L Lymphocytes % 23.1 L (24.0-44.0) % Monocytes % 8.6 (0.0-12.0) % Eosinophils % 8.4 H (0.00-5.0) % Basophils % 0.5 (0.0-0.4) % Absolute Granulocytes 4.87 (1.4-6.9) x10^3/uL Basophils # 0.04 (0-0.4) x10^3/uL PT 9.9 (9.4-12.5) SECONDS INR 0.90 (0.8-3.0) Sodium 136 (135-145) mmol/L Potassium 3.9 (3.5-5.1) mmol/L Chloride 101 (98-107) mmol/L Carbon Dioxide 30 (22-30) mmol/L Anion Gap 9.0 (5-15) MEQ/L BUN 26 H (9-20) mg/dL Creatinine 0.89 (0.66-1.25) mg/dL Estimated GFR 98.1 ML/MIN Glucose 106 (74-106) mg/dL Calcium 9.3 (8.4-10.2) mg/dL Total Bilirubin 0.30 (0.2-1.3) mg/dL AST 33 (17-59) U/L ALT 38 (0-50) U/L Alkaline Phosphatase 93 (38-126) U/L Serum Total Protein 6.7 (6.3-8.2) g/dL Albumin 4.0 (3.5-5.0) g/dL Urine Color (Yellow) Urine Appearance (Clear) Urine pH (4.6-8.0) Ur Specific [facility] (1.005-1.030) Urine Protein (Negative) Urine Glucose (UA) (Negative) mg/dL Urine Ketones (Negative) Urine Blood (Negative) Urine Nitrite (Negative) Urine Bilirubin (Negative) Urine Urobilinogen (0.2) mg/dL Ur Leukocyte Esterase (Negative) U Hyaline Cast (Auto) (0-2) /LPF Urine Microscopic RBC (0-5) /HPF Urine Microscopic WBC (0-5) /HPF Ur Epithelial Cells (None Seen) /HPF Urine Bacteria (None Seen) /HPF Urine Culture Reflexed (NO) 06/21/23 06/22/23 06/22/23 Range/Units 21:15 04:37 04:37 WBC 6.6 (4.0-10.5) x10^3/uL RBC 4.18 (4.1-5.6) x10^6/uL Hgb 13.4 (12.5-18.0) g/dL Hct 40.3 L (42-50) % MCV 96.4 (78-100) fL MCH 32.1 H (26-32) pg MCHC 33.3 (32-36) g/dL RDW 12.4 (11.5-14.0) % Plt Count 270 (150-450) x10^3/uL MPV 8.6 (7.5-11.0) fL Gran % 54.5 (36.0-66.0) % Immature Gran % (Auto) 0.2 (0.00-0.4) % Nucleat RBC Rel Count 0.0 (0.00-0.1) % Eos # (Auto) 0.70 H (0-0.5) x10^3/uL Immature Gran # (Auto) 0.01 (0.00-0.03) x10^3u/L Absolute Lymphs (auto) 1.61 (1.0-4.6) x10^3/uL Absolute Monos (auto) 0.60 (0.0-1.3) x10^3/uL Absolute Nucleated RBC 0.00 (0.00-0.01) x10^3u/L Lymphocytes % 24.6 (24.0-44.0) % Monocytes % 9.2 (0.0-12.0) % Eosinophils % 10.7 H (0.00-5.0) % Basophils % 0.8 (0.0-0.4) % Absolute Granulocytes 3.58 (1.4-6.9) x10^3/uL Basophils # 0.05 (0-0.4) x10^3/uL PT (9.4-12.5) SECONDS INR (0.8-3.0) Sodium 136 (135-145) mmol/L Potassium 4.0 (3.5-5.1) mmol/L Chloride 104 (98-107) mmol/L Carbon Dioxide 25 (22-30) mmol/L Anion Gap 11.0 (5-15) MEQ/L BUN 23 H (9-20) mg/dL Creatinine 0.64 L (0.66-1.25) mg/dL Estimated GFR 108.4 ML/MIN Glucose 91 (74-106) mg/dL Calcium 9.3 (8.4-10.2) mg/dL Total Bilirubin 0.50 (0.2-1.3) mg/dL AST 28 (17-59) U/L ALT 38 (0-50) U/L Alkaline Phosphatase 93 (38-126) U/L Serum Total Protein 6.4 (6.3-8.2) g/dL Albumin 3.9 (3.5-5.0) g/dL Urine Color Yellow (Yellow) Urine Appearance Clear (Clear) Urine pH 6.5 (4.6-8.0) Ur Specific [facility] >=1.030 A (1.005-1.030) Urine Protein Negative (Negative) Urine Glucose (UA) Negative (Negative) mg/dL Urine Ketones Negative (Negative) Urine Blood Negative (Negative) Urine Nitrite Negative (Negative) Urine Bilirubin Negative (Negative) Urine Urobilinogen 1.0 A (0.2) mg/dL Ur Leukocyte Esterase Small A (Negative) U Hyaline Cast (Auto) NONE SEEN (0-2) /LPF Urine Microscopic RBC 0-2 (0-5) /HPF Urine Microscopic WBC 21-50 A (0-5) /HPF Ur Epithelial Cells None Seen (None Seen) /HPF Urine Bacteria None Seen (None Seen) /HPF Urine Culture Reflexed YES (NO) Radiology Exams: Radiology Procedures Category Date Time Status CT ANGIOGRAPHY NECK [CT] Stat Exams 06/21/23 17:54 Completed CTA HEAD W AND/OR WO CONTRAST [CT] Stat Exams 06/21/23 17:53 Completed HEAD WITHOUT CONTRAST [CT] Stat Exams 06/21/23 18:00 Completed Multi-Disciplinary Progress Notes: Multi-Disciplinary Progress Notes 06/22/23 10:11 Case Management Note by Linda Gray CASE MANAGEMENT DEFERRED AT THIS TIME- AWAITING TRANSFER TO HIGHER LEVEL OF CARE Initialized on 06/22/23 10:11 - END OF NOTE 06/21/23 23:04 Pharmacy Note by Norma Quezada pt wants to take home meds. er doctor states patient may take home meds. the following meds were checked for authenticity by myself: tamsulosin, sertaline, aspirin, losartan potassium, atorvastatin, clopidogrel, and amlodipine besylate. Initialized on 06/21/23 23:04 - END OF NOTE Assessment/Plan (1) Stroke Current Visit: Yes Status: Acute Assessment & Plan: -Neurology consult reviewed and agree with recommendations for transfer for ophthalmology/neurosurgery evaluation -Continue medical therapy with ASA, Plavix, Statin -Pending transfer to [facility] on 06/21 (ED Doctor spoke with hospitalist out of [facility] in [place]. He accepted the patient at 2200 and is planning on placing him in the PCU inpatient setting but a bed will likely not be available till about noon on 06/22/2023. Code(s): I63.9 - CEREBRAL INFARCTION, UNSPECIFIED (2) Vision loss, left eye Current Visit: Yes Status: Acute Assessment & Plan: -see stroke Code(s): H54.62 - UNQUALIFIED VISUAL LOSS, LEFT EYE, NORMAL VISION RIGHT EYE (3) Cerebral aneurysm, nonruptured Current Visit: Yes Status: Acute Assessment & Plan: -see stroke Code(s): I67.1 - CEREBRAL ANEURYSM, NONRUPTURED (4) HTN (hypertension) Current Visit: Yes Status: Chronic Assessment & Plan: -continue home meds Code(s): I10 - ESSENTIAL (PRIMARY) HYPERTENSION (5) HLD (hyperlipidemia) Current Visit: Yes Status: Chronic Assessment & Plan: -continue home meds Code(s): E78.5 - HYPERLIPIDEMIA, UNSPECIFIED (6) Carotid stenosis Current Visit: Yes Status: Acute Assessment & Plan: -see stroke Code(s): I65.29 - OCCLUSION AND STENOSIS OF UNSPECIFIED CAROTID ARTERY
--- NOTE | 2023-06-22 11:44 | PCM.DS ---
Discharge Summary Date of Admission: 06/21/23 23:26 Date of Discharge: 06/22/23 Admitting Physician: MAYUR HENDERSON MD Consults: Consults on Case 06/22/23 08:21 Consult Tele-Health [Tele-Health Consult] ROUTINE Primary Care Provider: NO FAMILY DOCTOR Allergies Allergies tetracycline Allergy (Mild, Verified 06/21/23 22:51) unknown "mild" allergic reaction per [facility] records. Hospital Summary - Hospital Course Hospital Course: is a 62 year old male who suffered a stroke about 1 month ago while in [place], treated medically and now presents with sudden vision loss in the left eye, right sided weakness with CT of head without contrast showed a likely acute infart in left parietal area, and CTA of the head showed shows the left common carotid, ICA and visualized extracranial segments seen occluded with filling defect within signifying thrombus. 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 The impression states there is left common carotid and internal carotid artery that are seen that are occluded with an isodense thrombus along their course. The right carotid artery has a hemodynamic insignificant atheromatous plaque and calcifications. The proximal right MCA highly concerning for aneurysm. Of noted The ED doctor spoke with Dr. Lau from [facility] (neurologist structural iron erector) - He reviewed the actual films as I was reading the reports of the radiologist finding of all the studies that were clouded regarding this patient. He states that he feels that these areas of abnormalities appear chronic. He does not feel the patient requires thrombectomy. He stated that the only patients that they are taking at this time are level 1 stroke and trauma patients. He does not believe this is an acute stroke. Dr. Forte, the neurosurgeon out of [facility] reviewed the films that were clouded regarding this patient. He states that no neurosurgical intervention is necessary.The ED doctor then spoke with hospitalist Dr.Yadla bhatia out of [facility] in [place], [place]. I reviewed the patient history, physical findings, results of the radiographic studies as well as reviewing the results of the CT scans of the prior hospitalization which I also reviewed. He accepts the patient at 2200 and is planning on placing him in the PCU inpatient setting but a bed will likely not be available till about noon on 06/22/2023. Admitted to [facility] for observation overnight pending transfer. Patient's family did request neuro consult this morning to determine if transfer is necessary. Neurology has seen the patient and discussed options for treatment if stroke is acute vs CRAO vs other ocular process with recommendations for transfer for neurosurgery evaluation of aneurysm due to size which is high risk for rupture. Family is agreeable to transfer. Patient started on ceftriaxone for mildly suspicious UA. Latest Assessment & Plan (1) Stroke Current Visit: Yes Status: Acute Assessment & Plan: -Neurology consult reviewed and agree with recommendations for transfer for ophthalmology/neurosurgery evaluation -Continue medical therapy with ASA, Plavix, Statin -Pending transfer to [facility] on 06/21 (ED Doctor spoke with hospitalist out of [facility] in [place]. He accepted the patient at 2200 and is planning on placing him in the PCU inpatient setting but a bed will likely not be available till about noon on 06/22/2023. Code(s): I63.9 - CEREBRAL INFARCTION, UNSPECIFIED (2) Vision loss, left eye Current Visit: Yes Status: Acute Assessment & Plan: -see stroke Code(s): H54.62 - UNQUALIFIED VISUAL LOSS, LEFT EYE, NORMAL VISION RIGHT EYE (3) Cerebral aneurysm, nonruptured Current Visit: Yes Status: Acute Assessment & Plan: -see stroke Code(s): I67.1 - CEREBRAL ANEURYSM, NONRUPTURED (4) HTN (hypertension) Current Visit: Yes Status: Chronic Assessment & Plan: -continue home meds Code(s): I10 - ESSENTIAL (PRIMARY) HYPERTENSION (5) HLD (hyperlipidemia) Current Visit: Yes Status: Chronic Assessment & Plan: -continue home meds Code(s): E78.5 - HYPERLIPIDEMIA, UNSPECIFIED (6) Carotid stenosis Current Visit: Yes Status: Acute Assessment & Plan: -see stroke #UTI -Ceftriaxone started, will follow culture I spent 35 minutes [id number] with the patient on the day of discharge performing discharge exam, discussing hospital stay and discharge instructions with patient and caregivers, preparation of discharge records, prescriptions & referral forms and addressing any questions/concerns the patient had as documented above. - Vitals & Intake/Output Vital Signs: Vital Signs Temperature 97.6 F 06/22/23 06:38 Pulse Rate 66 06/22/23 10:00 Respiratory Rate 16 06/22/23 10:00 Blood Pressure 145/73 05/14/24 10:00 O2 Sat by Pulse Oximetry 97 06/22/23 10:00 Intake & Output: Intake & Output 06/19/23 06/20/23 06/21/23 06/22/23 11:59 11:59 11:59 11:59 Weight 69 kg - Lab Result Diagrams: 06/22/23 04:37 06/22/23 04:37 Lab Results-Last 24 Hrs: Lab Results-Last 24 Hours 06/21/23 06/21/23 06/21/23 Range/Units 18:00 18:00 18:00 WBC 8.2 (4.0-10.5) x10^3/uL RBC 4.11 (4.1-5.6) x10^6/uL Hgb 13.3 (12.5-18.0) g/dL Hct 39.4 L (42-50) % MCV 95.9 (78-100) fL MCH 32.4 H (26-32) pg MCHC 33.8 (32-36) g/dL RDW 12.4 (11.5-14.0) % Plt Count 272 (150-450) x10^3/uL MPV 8.6 (7.5-11.0) fL Gran % 59.3 (36.0-66.0) % Immature Gran % (Auto) 0.1 (0.00-0.4) % Nucleat RBC Rel Count 0.0 (0.00-0.1) % Eos # (Auto) 0.69 H (0-0.5) x10^3/uL Immature Gran # (Auto) 0.01 (0.00-0.03) x10^3u/L Absolute Lymphs (auto) 1.90 (1.0-4.6) x10^3/uL Absolute Monos (auto) 0.71 (0.0-1.3) x10^3/uL Absolute Nucleated RBC 0.00 (0.00-0.01) x10^3u/L Lymphocytes % 23.1 L (24.0-44.0) % Monocytes % 8.6 (0.0-12.0) % Eosinophils % 8.4 H (0.00-5.0) % Basophils % 0.5 (0.0-0.4) % Absolute Granulocytes 4.87 (1.4-6.9) x10^3/uL Basophils # 0.04 (0-0.4) x10^3/uL PT 9.9 (9.4-12.5) SECONDS INR 0.90 (0.8-3.0) Sodium 136 (135-145) mmol/L Potassium 3.9 (3.5-5.1) mmol/L Chloride 101 (98-107) mmol/L Carbon Dioxide 30 (22-30) mmol/L Anion Gap 9.0 (5-15) MEQ/L BUN 26 H (9-20) mg/dL Creatinine 0.89 (0.66-1.25) mg/dL Estimated GFR 98.1 ML/MIN Glucose 106 (74-106) mg/dL Calcium 9.3 (8.4-10.2) mg/dL Total Bilirubin 0.30 (0.2-1.3) mg/dL AST 33 (17-59) U/L ALT 38 (0-50) U/L Alkaline Phosphatase 93 (38-126) U/L Serum Total Protein 6.7 (6.3-8.2) g/dL Albumin 4.0 (3.5-5.0) g/dL Urine Color (Yellow) Urine Appearance (Clear) Urine pH (4.6-8.0) Ur Specific Carlisle (1.005-1.030) Urine Protein (Negative) Urine Glucose (UA) (Negative) mg/dL Urine Ketones (Negative) Urine Blood (Negative) Urine Nitrite (Negative) Urine Bilirubin (Negative) Urine Urobilinogen (0.2) mg/dL Ur Leukocyte Esterase (Negative) U Hyaline Cast (Auto) (0-2) /LPF Urine Microscopic RBC (0-5) /HPF Urine Microscopic WBC (0-5) /HPF Ur Epithelial Cells (None Seen) /HPF Urine Bacteria (None Seen) /HPF Urine Culture Reflexed (NO) 06/21/23 06/22/23 06/22/23 Range/Units 21:15 04:37 04:37 WBC 6.6 (4.0-10.5) x10^3/uL RBC 4.18 (4.1-5.6) x10^6/uL Hgb 13.4 (12.5-18.0) g/dL Hct 40.3 L (42-50) % MCV 96.4 (78-100) fL MCH 32.1 H (26-32) pg MCHC 33.3 (32-36) g/dL RDW 12.4 (11.5-14.0) % Plt Count 270 (150-450) x10^3/uL MPV 8.6 (7.5-11.0) fL Gran % 54.5 (36.0-66.0) % Immature Gran % (Auto) 0.2 (0.00-0.4) % Nucleat RBC Rel Count 0.0 (0.00-0.1) % Eos # (Auto) 0.70 H (0-0.5) x10^3/uL Immature Gran # (Auto) 0.01 (0.00-0.03) x10^3u/L Absolute Lymphs (auto) 1.61 (1.0-4.6) x10^3/uL Absolute Monos (auto) 0.60 (0.0-1.3) x10^3/uL Absolute Nucleated RBC 0.00 (0.00-0.01) x10^3u/L Lymphocytes % 24.6 (24.0-44.0) % Monocytes % 9.2 (0.0-12.0) % Eosinophils % 10.7 H (0.00-5.0) % Basophils % 0.8 (0.0-0.4) % Absolute Granulocytes 3.58 (1.4-6.9) x10^3/uL Basophils # 0.05 (0-0.4) x10^3/uL PT (9.4-12.5) SECONDS INR (0.8-3.0) Sodium 136 (135-145) mmol/L Potassium 4.0 (3.5-5.1) mmol/L Chloride 104 (98-107) mmol/L Carbon Dioxide 25 (22-30) mmol/L Anion Gap 11.0 (5-15) MEQ/L BUN 23 H (9-20) mg/dL Creatinine 0.64 L (0.66-1.25) mg/dL Estimated GFR 108.4 ML/MIN Glucose 91 (74-106) mg/dL Calcium 9.3 (8.4-10.2) mg/dL Total Bilirubin 0.50 (0.2-1.3) mg/dL AST 28 (17-59) U/L ALT 38 (0-50) U/L Alkaline Phosphatase 93 (38-126) U/L Serum Total Protein 6.4 (6.3-8.2) g/dL Albumin 3.9 (3.5-5.0) g/dL Urine Color Yellow (Yellow) Urine Appearance Clear (Clear) Urine pH 6.5 (4.6-8.0) Ur Specific Carl[place] >=1.030 A (1.005-1.030) Urine Protein Negative (Negative) Urine Glucose (UA) Negative (Negative) mg/dL Urine Ketones Negative (Negative) Urine Blood Negative (Negative) Urine Nitrite Negative (Negative) Urine Bilirubin Negative (Negative) Urine Urobilinogen 1.0 A (0.2) mg/dL Ur Leukocyte Esterase Small A (Negative) U Hyaline Cast (Auto) NONE SEEN (0-2) /LPF Urine Microscopic RBC 0-2 (0-5) /HPF Urine Microscopic WBC 21-50 A (0-5) /HPF Ur Epithelial Cells None Seen (None Seen) /HPF Urine Bacteria None Seen (None Seen) /HPF Urine Culture Reflexed YES (NO) - Radiology Exams Ordered Rad Exams-Entire Visit: Radiology Procedures Category Date Time Status CT ANGIOGRAPHY NECK [CT] Stat Exams 06/21/23 17:54 Completed CTA HEAD W AND/OR WO CONTRAST [CT] Stat Exams 06/21/23 17:53 Completed HEAD WITHOUT CONTRAST [CT] Stat Exams 06/21/23 18:00 Completed - Procedures and Test Procedures and Tests throughout Hospitalization: Therapy Orders & Screens 06/21/23 23:43 EKG REPEAT IN AM Comment: 06/22/23 00:35 OT Screen per Nursing Assess ONCE Comment: Protocol Order Physician Instructions: Greater than 3 points order OT Admission Screening Reason For Exam: Triggered on Admission Diagnosis: Stroke Open Wound/Cellutlitis/Pressure Ulcers: No Acute Fx/ORIF/Change in wt bearing status: No Severe MUSCULOSKELETAL pain: No ADL Dysfunction: No Acute CVA w/Hemiparesis/Hemiplegia: Yes Decreased Functional Mobility/Strength: Yes Sprain/Strain: No Acute Post-op Mobility Dysfunction: No Total Points: 6 PT Screen per Nursing Assess ONCE Comment: Protocol Order Physician Instructions: Greater than 3 points order PT Admission Screenin Reason For Exam: Triggered on Admission Diagnosis: Stroke Open Wound/Cellutlitis/Pressure Ulcers: No Acute Fx/ORIF/Change in wt bearing status: No Severe MUSCULOSKELETAL pain: No ADL Dysfunction: No Acute CVA w/Hemiparesis/Hemiplegia: Yes Decreased Functional Mobility/Strength: Yes Sprain/Strain: No Acute Post-op Mobility Dysfunction: No Total Points: 6 ST Screen per Nursing Assess ONCE Comment: Protocol Order Physician Instructions: Greater than [address] Admission Screening Reason For Exam: Triggered on Admission Diagnosis: Stroke CVA/Dyshpagia/Aphasia: Yes Cognitive Deficits: No Dehydration/Nutrition Deficit: No Reflux: No Oral-Motor Difficulties: No Pneumonia: No [facility] Resident: No Total Points: 5 06/22/23 09:15 Speech Therapy Eval & Treat [ Eval & Treat (MD Order)] .as ordered Comment: Physician Instructions: Reason For Exam: Evaluate: Yes Treat: Yes Reason for Eval: h/o stroke Diagnosis: Stroke Discharge Exam General Appearance: no apparent distress Neurologic Exam: alert, motor deficits, motor weakness, other (right hemiplegia. Left arm/leg no drift), aphasia, other (Global apashia, Non-verbal)) Eye Exam: PERRL, EOMI, other (vision loss left eye) Ears, Nose, Throat Exam: normal ENT inspection Neck Exam: normal inspection, full range of motion Respiratory Exam: normal breath sounds, lungs clear Cardiovascular Exam: regular rate/rhythm, normal heart sounds Gastrointestinal/Abdomen Exam: soft, normal bowel sounds Male Genitalia Exam: deferred Rectal Exam: deferred Back Exam: normal inspection Extremity Exam: other (right hemiplegia) Skin Exam: normal color Final Diagnosis/Problem List - Final Discharge Diagnosis/Problem (1) Stroke Current Visit: Yes Status: Acute Code(s): I63.9 - CEREBRAL INFARCTION, UNSPECIFIED (2) Vision loss, left eye Current Visit: Yes Status: Acute Code(s): H54.62 - UNQUALIFIED VISUAL LOSS, LEFT EYE, NORMAL VISION RIGHT EYE (3) Cerebral aneurysm, nonruptured Current Visit: Yes Status: Acute Code(s): I67.1 - CEREBRAL ANEURYSM, NONRUPTURED (4) HTN (hypertension) Current Visit: Yes Status: Chronic Code(s): I10 - ESSENTIAL (PRIMARY) HYPERTENSION (5) HLD (hyperlipidemia) Current Visit: Yes Status: Chronic Code(s): E78.5 - HYPERLIPIDEMIA, UNSPECIFIED (6) Carotid stenosis Current Visit: Yes Status: Acute Code(s): I65.29 - OCCLUSION AND STENOSIS OF UNSPECIFIED CAROTID ARTERY (7) UTI (urinary tract infection) Current Visit: Yes Status: Acute Code(s): N39.0 - URINARY TRACT INFECTION, SITE NOT SPECIFIED - Discharge Disposition: DC TO OTHER HOSP Condition: Fair Prescriptions: New Ceftriaxone Sodium [ROCEPHIN 1 GM / 100 ML NaCl] 1 gm IV Q24H22 iv piggy Continue Aspirin 81 gm Chew [Baby Aspirin 81 mg Chew] 81 mg PO DAILY Clopidogrel Bisulfate [Clopidogrel] 75 mg PO DAILY Sertraline HCl 50 mg [Zoloft 50 mg Tablet] 50 mg PO DAILY Tamsulosin HCl 0.4 mg [Flomax 0.4 MG] 0.4 mg PO DAILY Losartan Potassium 50 mg [Cozaar 50 MG] 50 mg PO DAILY Atorvastatin Calcium 40 mg PO QHS Amlodipine Besylate 10 mg PO QHS Sodium Chloride 1,000 mg PO BID Fluticasone Propionate [Armonair Digihaler] 1 spray IH Q12H PRN PRN PRN Reason: post nasal drip/nasal congesti Baclofen 10 mg [Lioresal 10 mg] 10 mg PO Q8H PRN PRN PRN Reason: Muscle Spasms Follow up with: DOCTOR,NO FAMILY [Primary Care Provider] -
[2023-06-22 12:21] VITALS: TEMP 97.8
[2023-06-22 16:11] VITALS: O2SAT 96
[2023-06-22 18:02] VITALS: BP 135/82; PULSE 81; RESP 21
[2023-06-22] MEDS ORDERED: NORVASC 5 MG PO SCH (22:00)
[2023-06-22] MEDS ORDERED: ZOCOR 20MG PO SCH (22:00)
[2023-06-22] MEDS ORDERED: LIPITOR 40MG PO SCH (22:00)
[2023-06-22] MEDS ORDERED: NON-FORMULARY ITEM (Amlodipine Besylate [Amlodipine Besylate] 10 MG Tablet) PO SCH (22:00)
[2023-06-22] MEDS ORDERED: ROCEPHIN 1 GM / 100 ML NaCl 1 GM/100 ML IVPB IV SCH (22:00)
== END 2023-06-22 19:00 ==
LOC: ED 17:32 → ICU 23:26
PROVIDERS: ADMIT Student in an Organized Health Care Education/Training Program; ATTEND Student in an Organized Health Care Education/Training Program
DX: I63.9 Cerebral infarction, unspecified (principal); H54.62 Unqualified visual loss, left eye, normal vision right eye; I67.1 Cerebral aneurysm, nonruptured; I10 Essential (primary) hypertension; E78.5 Hyperlipidemia, unspecified; I65.29 Occlusion and stenosis of unspecified carotid artery; N39.0 Urinary tract infection, site not specified; Z86.73 Personal history of transient ischemic attack (TIA), and cerebral infarction without residual deficits; Z79.899 Other long term (current) drug therapy; Z79.01 Long term (current) use of anticoagulants
CPT/HCPCS: 36000; 36415; 70450; 70496; 70498; 80053; 81001; 85025; 85610; 87086; 93005; 93041; 93268; 94760; 99285; J0696; Q3014; A9270-GY; G0378